=== PATIENT | female | born 1990 | race Caucasian/White ===

== ENCOUNTER 2021-08-25 07:49 | Emergency (ER) | payer OTHER ==
[~2021-08-25] VITALS: Ht 162.6 cm; Wt 100.2 kg
[2021-08-25 09:32] VITALS: BP 151/99
== END 2021-08-25 09:37 | disposition home or self-care (01) ==
LOC: ER 07:49
DX: S09.8XXA Other specified injuries of head, initial encounter (principal); R42 Dizziness and giddiness; Z90.49 Acquired absence of other specified parts of digestive tract; X58.XXXA Exposure to other specified factors, initial encounter; Y93.89 Activity, other specified; Y92.89 Other specified places as the place of occurrence of the external cause; Y99.8 Other external cause status
CPT/HCPCS: 70450

== ENCOUNTER 2021-08-31 16:33 | Emergency (ER) | payer OTHER ==
[~2021-08-31] VITALS: Ht 162.6 cm; Wt 99.8 kg
[2021-08-31 17:05] VITALS: BP 124/86
[2021-08-31] MEDS ORDERED: KETOROLAC TROMETH 60MG/2ML VIAL IM ONE (17:45)
[2021-08-31] MEDS ORDERED: METOCLOPRAMIDE HCL 5MG/ml INJ 2ml VIAL IV ONE (18:00)
== END 2021-08-31 18:15 | disposition home or self-care (01) ==
LOC: ER 16:33
DX: G44.319 Acute post-traumatic headache, not intractable (principal); J45.909 Unspecified asthma, uncomplicated; G43.909 Migraine, unspecified, not intractable, without status migrainosus; Z90.49 Acquired absence of other specified parts of digestive tract; Z88.8 Allergy status to other drugs, medicaments and biological substances
CPT/HCPCS: 96372; 96374; 99283; J1885; J2765